=== PATIENT | male | born 1950 | race Caucasian/White ===

== ENCOUNTER 2018-03-23 11:54 | Emergency (ER) | payer MEDICARE, OTHER ==
--- NOTE | 2018-03-23 11:56 | EDM.PDOC ---
ED HPI GENERAL MEDICAL PROBLEM - General Stated Complaint: CHEST PAIN Time Seen by Provider: 03/23/18 11:54 Source of Information: Reports: Patient, Family ( arrived later.) History Limitations: Reports: Other (chest pain) - History of Present Illness INITIAL COMMENTS - FREE TEXT/NARRATIVE: 67 y.o.w.m with h/o HTN. NIDDM came to the ed due to sudden onset of SSCP while playing golf at 111 am. Pain got worse. He came by PC to the ED. Pt looked diaphoretic, his BP was 195/110. pain was 8/10 on arrival. His S/P yesterday was worse, he added. Pt did not take his meds this am. Last food intake last night. Former smoker, his left Carotid artery is 100% blocked. No SOB. ECG showed a NSR with a rate of 67 BPM, ASA was given, NTG was applied Labetolol was given which improved his pain to 4/10 and his BP 120/76 initially. Onset: Today Onset Date: 03/23/18 Onset Time: 11:00 Duration: Minutes:, Intermittent (pt did not take his meds thsi am. No ASA, No BP meds. ) Location: Reports: Chest Quality: Reports: Burning, Dull, Pressure, Stabbing, Throbbing Severity: Moderate Improves with: Reports: Medication Worsens with: Reports: Movement Context: Reports: Exercise (was golfing) Associated Symptoms: Reports: Chest Pain, Diaphoresis mid chest radiating to both arms Pain Score (Numeric/FACES): 8 - Related Data Allergies Allergy/AdvReac Type Severity Reaction Status Date / Time No Known Allergies Allergy Verified 03/23/18 11:59 Home Meds: Home Meds .Glipizide 1 tab PO DAILY 03/23/18 [History] .Simvastatin 1 tab PO DAILY 03/23/18 [History] Aspirin [Alanna Chewable] 81 mg PO DAILY 03/23/18 [History] Cholecalciferol (Vitamin D3) [Vitamin D] 5,000 unit PO DAILY 03/23/18 [History] metFORMIN [Glucophage] 1,000 mg PO DAILY 03/23/18 [History] ED ROS GENERAL - Review of Systems Review Of Systems: See Below Constitutional: Reports: Weakness, Diaphoresis HEENT: Reports: No Symptoms Respiratory: Reports: No Symptoms Cardiovascular: Reports: Chest Pain (SS not radiating) Endocrine: Reports: No Symptoms GI/Abdominal: Reports: No Symptoms : Reports: No Symptoms Musculoskeletal: Reports: No Symptoms Skin: Reports: No Symptoms Neurological: Reports: No Symptoms Psychiatric: Reports: No Symptoms Hematologic/Lymphatic: Reports: No Symptoms Immunologic: Reports: No Symptoms ED EXAM, GENERAL - Physical Exam Exam: See Below Exam Limited By: No Limitations General Appearance: Alert, Moderate Distress, Obese Eye Exam: Bilateral Eye: Normal Inspection Ears: Normal External Exam Ear Exam: Bilateral Ear: Auricle Normal Nose: Normal Inspection, Normal Mucosa, No Blood Throat/Mouth: Normal Inspection, Normal Lips, Normal Gums, Normal Voice, No Airway Compromise Head: Atraumatic, Normocephalic Neck: Normal Inspection, Supple, Non-Tender, Full Range of Motion Respiratory/Chest: No Respiratory Distress, Lungs Clear, Normal Breath Sounds, No Accessory Muscle Use, Chest Non-Tender Cardiovascular: Normal Peripheral Pulses, Regular Rate, Rhythm, No Edema, No Gallop, No JVD, No Murmur, No Rub Peripheral Pulses: 2+: Radial (L) GI/Abdominal: Normal Bowel Sounds, Soft, Non-Tender, No Organomegaly, No Distention (Male) Exam: Deferred Rectal (Males) Exam: Deferred Back Exam: Normal Inspection, Full Range of Motion Extremities: Normal Inspection, Normal Range of Motion, Non-Tender, No Pedal Edema, Normal Capillary Refill Neurological: Alert, Oriented, CN II-XII Intact, Normal Cognition, Normal Gait, No Motor/Sensory Deficits Psychiatric: Normal Affect, Normal Mood Skin Exam: Warm, Dry, Intact, Normal Color, No Rash Lymphatic: No Adenopathy EKG INTERPRETATION EKG Date: 03/23/18 Time: 12:10 Rhythm: NSR Rate (Beats/Min): 67 [place]: Normal P-Wave: Present QRS: Normal ST-T: Normal QT: Normal Comparison: NA - No Prior EKG EKG Interpretation Comments: ECG was repeated after 20 min, no change Course - Vital Signs Text/Narrative:: 67 y.o.w.m with h/o HTN. NIDDM came to the ed due to sudden onset of SSCP while playing golf at 111 am. Pain got worse. He came by PC to the ED. Pt looked diaphoretic, his BP was 195/110. pain was 8/10 on arrival. His S/P yesterday was worse, he added. Pt did not take his meds this am. Last food intake last night. Former smoker, his left Carotid artery is 100% blocked. No SOB. ECG showed a NSR with a rate of 67 BPM, ASA was given, NTG was applied Labetolol was given which improved his pain to 4/10 and his BP 120/76 initially. PE: 67 y.o.w m with acute NSTEMI Imaging: CXR NAD Labs: Troponin: 2.148 Glc 238 HGB A1C 8.1 HGB 17.1 CBC was otherwise nl, D Dimer 0.45 Impression: Acute Non STEMI, HTN, NIDDM, Obesity, H/O 100% blocked right carotid artery. Tx: ASA. NTGpast/NTG Drip, Labetolol, NS. Heparin Drip with bolus as per protocol 12.36 pm Consultation: Dr. Cervantes, Hospitalist. [facility]: Nitro drip, heparin, ground transfer, accepted to ICU Reexam: On transfer to [place] CP 12/06 BP 145/78 HR 68 BPM Plan: Transfer to [place] ICU Last Recorded V/S: Last Vital Signs Temp 36.5 C 03/23/18 11:55 Pulse 67 03/23/18 11:55 Resp 16 03/23/18 11:55 BP 172/94 H 03/23/18 13:14 Pulse Ox 97 03/23/18 11:55 - Orders/Labs/Meds Orders: Active Orders 24 hr Category Date Time Status Admission Status [Patient Status] [ADT] Routine ADT 03/23/18 11:59 Active Chest 1V Frontal [CR] Stat Exams 03/23/18 11:58 Taken Heparin Sodium/0.45% NaCl [Heparin 25,000 Units in 1/2 Med 03/23/18 12:30 Active NS 500 ML] 25,000 units in 500 ml IV TITRATE Nitroglycerin/D5W [Nitroglycerin 25 MG/D5W 250 ML] Med 03/23/18 13:00 Active 25 mg in 250 ml IV TITRATE Sodium Chloride 0.9% [Normal Saline] 1,000 ml Med 03/23/18 12:19 Active IV ASDIRECTED EKG 12 Lead [EK] Routine Ther 03/23/18 11:58 Ordered Medication Orders Sodium Chloride (Normal Saline) 1,000 mls @ 125 mls/hr IV ASDIRECTED STA Stop: 03/23/18 20:18 Last Admin: 03/23/18 12:25 Dose: 125 mls/hr Heparin Sodium/Sodium Chloride (Heparin 25,000 Units In 1/2 Ns 500 Ml) 25,000 units in 500 mls @ 19.958 mls/hr IV TITRATE CARRIE; Protocol Last Admin: 03/23/18 13:01 Dose: 8 units/kg/hr, 19.958 mls/hr Nitroglycerin/Dextrose (Nitroglycerin 25 Mg/D5w 250 Ml) 25 mg in 250 mls @ 6 mls/hr IV TITRATE CARRIE; Protocol Last Admin: 03/23/18 13:14 Dose: 5 mcg/min, 3 mls/hr Labs: Laboratory Tests 03/23/18 03/23/18 03/23/18 Range/Units 12:00 12:00 12:00 WBC 7.0 (4.5-12.0) X10-3/uL RBC 5.69 (4.30-5.75) x10(6)uL Hgb 17.1 H (11.5-15.5) g/dL Hct 50.3 (30.0-51.3) % MCV 88.3 (80-96) fL MCH 30.1 (27.7-33.6) pg MCHC 34.1 (32.2-35.4) g/dL RDW 12.0 (11.5-15.5) % Plt Count 207 (125-369) X10(3)uL MPV 6.5 L (7.4-10.4) fL Neut % (Auto) 63.2 (46-82) % Lymph % (Auto) 28.1 (13-37) % [place] % (Auto) 5.8 (4-12) % Eos % (Auto) 3 (1.0-5.0) % Baso % (Auto) 0 (0-2) % Neut # (Auto) 4.4 (1.6-8.3) # Lymph # (Auto) 2.0 (0.6-5.0) # [place] # (Auto) 0.4 (0.0-1.3) # Eos # (Auto) 0.2 (0.0-0.8) # Baso # (Auto) 0.0 (0.0-0.2) # PT 10.4 (8.7-11.1) INR 1.07 (0.89-1.13) D-Dimer, Quantitative 0.45 (0.0-0.59) mg/LFEU Sodium (135-145) mmol/L Potassium (3.5-5.3) mmol/L Chloride (100-110) mmol/L Carbon Dioxide (21-32) mmol/L BUN (7-18) mg/dL Creatinine (0.70-1.30) mg/dL Est Cr Clr Drug Dosing Estimated GFR (MDRD) (>60) BUN/Creatinine Ratio (9-20) Glucose (80-116) mg/dL Hemoglobin A1c (4.5-6.2) % Calcium (8.6-10.2) mg/dL Total Bilirubin (0.1-1.3) mg/dL Direct Bilirubin (0.10-0.20) mg/dL AST (5-25) IU/L ALT (12-36) U/L Alkaline Phosphatase (56-112) IU/L Troponin I (<0.017-0.056) ng/mL NT-Pro-B Natriuret Pep (<=125) pg/mL Total Protein (6.0-8.0) g/dL Albumin (3.2-4.6) g/dL Triglycerides (15-150) mg/dL Cholesterol (50-200) mg/dL LDL Cholesterol Direct (60-130) mg/dL HDL Cholesterol (40-75) mg/dL Cholesterol/HDL Ratio (0-5) Amylase (25-115) U/L 03/23/18 03/23/18 03/23/18 Range/Units 12:00 12:00 12:00 WBC (4.5-12.0) X10-3/uL RBC (4.30-5.75) x10(6)uL Hgb (11.5-15.5) g/dL Hct (30.0-51.3) % MCV (80-96) fL MCH (27.7-33.6) pg MCHC (32.2-35.4) g/dL RDW (11.5-15.5) % Plt Count (125-369) X10(3)uL MPV (7.4-10.4) fL Neut % (Auto) (46-82) % Lymph % (Auto) (13-37) % [place] % (Auto) (4-12) % Eos % (Auto) (1.0-5.0) % Baso % (Auto) (0-2) % Neut # (Auto) (1.6-8.3) # Lymph # (Auto) (0.6-5.0) # [place] # (Auto) (0.0-1.3) # Eos # (Auto) (0.0-0.8) # Baso # (Auto) (0.0-0.2) # PT (8.7-11.1) INR (0.89-1.13) D-Dimer, Quantitative (0.0-0.59) mg/LFEU Sodium 137 (135-145) mmol/L Potassium 3.7 (3.5-5.3) mmol/L Chloride 101 (100-110) mmol/L Carbon Dioxide 27 (21-32) mmol/L BUN 13 (7-18) mg/dL Creatinine 1.1 (0.70-1.30) mg/dL Est Cr Clr Drug Dosing TNP Estimated GFR (MDRD) > 60 (>60) BUN/Creatinine Ratio 11.8 (9-20) Glucose 238 H (80-116) mg/dL Hemoglobin A1c (4.5-6.2) % Calcium 8.2 L (8.6-10.2) mg/dL Total Bilirubin 0.6 (0.1-1.3) mg/dL Direct Bilirubin 0.14 (0.10-0.20) mg/dL AST 34 H (5-25) IU/L ALT 20 (12-36) U/L Alkaline Phosphatase 44 L (56-112) IU/L Troponin I 2.149 H* (<0.017-0.056) ng/mL NT-Pro-B Natriuret Pep 110 (<=125) pg/mL Total Protein 7.4 (6.0-8.0) g/dL Albumin 4.3 (3.2-4.6) g/dL Triglycerides (15-150) mg/dL Cholesterol (50-200) mg/dL LDL Cholesterol Direct (60-130) mg/dL HDL Cholesterol (40-75) mg/dL Cholesterol/HDL Ratio (0-5) Amylase 44 (25-115) U/L 03/23/18 03/23/18 Range/Units 12:00 12:00 WBC (4.5-12.0) X10-3/uL RBC (4.30-5.75) x10(6)uL Hgb (11.5-15.5) g/dL Hct (30.0-51.3) % MCV (80-96) fL MCH (27.7-33.6) pg MCHC (32.2-35.4) g/dL RDW (11.5-15.5) % Plt Count (125-369) X10(3)uL MPV (7.4-10.4) fL Neut % (Auto) (46-82) % Lymph % (Auto) (13-37) % [place] % (Auto) (4-12) % Eos % (Auto) (1.0-5.0) % Baso % (Auto) (0-2) % Neut # (Auto) (1.6-8.3) # Lymph # (Auto) (0.6-5.0) # [place] # (Auto) (0.0-1.3) # Eos # (Auto) (0.0-0.8) # Baso # (Auto) (0.0-0.2) # PT (8.7-11.1) INR (0.89-1.13) D-Dimer, Quantitative (0.0-0.59) mg/LFEU Sodium (135-145) mmol/L Potassium (3.5-5.3) mmol/L Chloride (100-110) mmol/L Carbon Dioxide (21-32) mmol/L BUN (7-18) mg/dL Creatinine (0.70-1.30) mg/dL Est Cr Clr Drug Dosing Estimated GFR (MDRD) (>60) BUN/Creatinine Ratio (9-20) Glucose (80-116) mg/dL Hemoglobin A1c 8.1 H (4.5-6.2) % Calcium (8.6-10.2) mg/dL Total Bilirubin (0.1-1.3) mg/dL Direct Bilirubin (0.10-0.20) mg/dL AST (5-25) IU/L ALT (12-36) U/L Alkaline Phosphatase (56-112) IU/L Troponin I (<0.017-0.056) ng/mL NT-Pro-B Natriuret Pep (<=125) pg/mL Total Protein (6.0-8.0) g/dL Albumin (3.2-4.6) g/dL Triglycerides 90 (15-150) mg/dL Cholesterol 110 (50-200) mg/dL LDL Cholesterol Direct 58 L (60-130) mg/dL HDL Cholesterol 42 (40-75) mg/dL Cholesterol/HDL Ratio 2.6 (0-5) Amylase (25-115) U/L Meds: Medications Generic Name Dose Route Start Last Admin Trade Name Amari PRN Reason Stop Dose Admin Sodium Chloride 1,000 mls @ 125 mls/hr 03/23/18 12:19 03/23/18 12:25 Normal Saline IV 03/23/18 20:18 125 mls/hr ASDIRECTED STA Administration Heparin Sodium/Sodium Chloride 25,000 units in 500 mls @ 19.958 mls/hr 12:30 03/23/18 13:01 Heparin 25,000 Units In 1/2 Ns 500 Ml IV 8 units/kg/hr TITRATE CARRIE 19.958 mls/hr Administration Protocol 8 UNITS/KG/HR Nitroglycerin/Dextrose 25 mg in 250 mls @ 6 mls/hr 03/23/18 13:00 03/23/18 13 :14 Nitroglycerin 25 Mg/D5w 250 Ml IV 5 mcg/min TITRATE CARRIE 3 mls/hr Administration Protocol 10 MCG/MIN Discontinued Medications Generic Name Dose Route Start Last Admin Trade Name Geraldq PRN Reason Stop Dose Admin Aspirin 324 mg 03/23/18 11:59 03/23/18 12:04 Aspirin PO 03/23/18 12:00 Not Given ONETIME ONE Aspirin 324 mg 03/23/18 11:58 03/23/18 12:05 Aspirin PO 03/23/18 11:59 324 mg ONETIME ONE Administration Heparin Sodium (Porcine) 4,000 units 03/23/18 12:45 03/23/18 12:44 Heparin Sodium IVPUSH 03/23/18 12:46 4,000 units ONETIME ONE Administration Heparin Sodium (Porcine) 4,000 units 03/23/18 12:32 03/23/18 12:45 Heparin Sodium IVPUSH 03/23/18 12:33 Not Given .BOLUS STA Labetalol HCl 20 mg 03/23/18 12:08 03/23/18 12:26 Normodyne IVPUSH 03/23/18 12:09 20 mg ONETIME ONE Administration Protocol Nitroglycerin 1 gm 03/23/18 12:19 03/23/18 12:29 Nitro-Bid 2% TOP 03/23/18 12:20 1 gm ONETIME ONE Administration Departure - Departure Time of Disposition: 13:10 Disposition: DC/Tfer to [facility] Reason for Transfer *Q: Other (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) Condition: Fair Clinical Impression: Non-ST elevated myocardial infarction (non-STEMI) Referrals: PCP,Not In Area [Primary Care Provider] - - My Orders Last 24 Hours: My Active Orders 03/23/18 11:58 Chest 1V Frontal [CR] Stat EKG 12 Lead [EK] Routine 03/23/18 11:59 Admission Status [Patient Status] [ADT] Routine 03/23/18 12:19 Sodium Chloride 0.9% [Normal Saline] 1,000 ml IV ASDIRECTED 03/23/18 12:30 Heparin Sodium/0.45% NaCl [Heparin 25,000 Units in 1/2 NS 500 ML] 25,000 units in 500 ml IV TITRATE 03/23/18 13:00 Nitroglycerin/D5W [Nitroglycerin 25 MG/D5W 250 ML] 25 mg in 250 ml IV TITRATE - Assessment/Plan Last 24 Hours: My Active Orders 03/23/18 11:58 Chest 1V Frontal [CR] Stat EKG 12 Lead [EK] Routine 03/23/18 11:59 Admission Status [Patient Status] [ADT] Routine 03/23/18 12:19 Sodium Chloride 0.9% [Normal Saline] 1,000 ml IV ASDIRECTED 03/23/18 12:30 Heparin Sodium/0.45% NaCl [Heparin 25,000 Units in 1/2 NS 500 ML] 25,000 units in 500 ml IV TITRATE 03/23/18 13:00 Nitroglycerin/D5W [Nitroglycerin 25 MG/D5W 250 ML] 25 mg in 250 ml IV TITRATE
[2018-03-23] MEDS ORDERED: Aspirin 81 MG Tab.Chew PO ONE ×2 (11:58→11:59)
[2018-03-23] MEDS ORDERED: Labetalol 20 MG/4 ML Syringe IVPUSH ONE (12:08)
[2018-03-23] MEDS ORDERED: Nitroglycerin 2% Oint 1 GM UD Packet TOP ONE (12:19)
[2018-03-23] MEDS ORDERED: Sodium Chloride 0.9% 1,000 ML IV STA (12:19)
[2018-03-23] MEDS ORDERED: Heparin Sodium/0.45% NaCl 25,000 UNITS/500 ML BAG IV SCH (12:30)
[2018-03-23] MEDS ORDERED: Heparin Sodium 5,000 Units/ML Vial IVPUSH STA (12:32)
[2018-03-23] MEDS ORDERED: Heparin Sodium 5,000 Units/ML Vial IVPUSH ONE (12:45)
[2018-03-23] MEDS ORDERED: Nitroglycerin/D5W 25 MG/250 ML BOTTLE IV SCH (13:00)
--- NOTE | 2018-03-23 14:37 | CR ---
INDICATION: Chest pain. CHEST: An AP portable upright view of the chest was obtained 03/23/2018. No comparisons were available. The heart did not appear enlarged. The aorta is tortuous with calcification in the arch area minimally. Overlying EKG leads are noted. A definite active infiltrate or effusion was not identified. However, markings are somewhat heavy at the lung bases, making it difficult to entirely exclude minimal patchy bronchopneumonia. IMPRESSION: No definite acute process. MTDD
== END 2018-03-23 13:20 ==
LOC: FB.ED 11:54
DX: I21.4 Non-ST elevation (NSTEMI) myocardial infarction (principal); I10 Essential (primary) hypertension; E11.9 Type 2 diabetes mellitus without complications; E66.9 Obesity, unspecified; Z87.891 Personal history of nicotine dependence; Z79.82 Long term (current) use of aspirin; Z79.899 Other long term (current) drug therapy; Z79.84 Long term (current) use of oral hypoglycemic drugs
CPT/HCPCS: 36415; 71045; 80048; 80061; 80076; 82150; 83036; 83880; 84484; 85025; 85379; 85610; 93005; 96361; 96374; 96375; 96376; 99285; A9270; J1644; J7030